=== PATIENT | female | born 1980 | race African-American/Black ===

== ENCOUNTER 2017-06-24 15:52 | Emergency (ER) | payer SELFPAY ==
[~2017-06-24] VITALS: Ht 160 cm; Wt 67.1 kg
[2017-06-24] MEDS ORDERED: IV NORMAL SALINE 1000ML BAG 1,000 ML IV SCH (16:27)
--- NOTE | 2017-06-24 16:27 | PHYS DOC ---
Past Medical History Past Medical History: Asthma Past Surgical History: Tubal ligation, Other Additional Past Surgical Histo: ovary cyst removed Alcohol Use: None Drug Use: None Adult General Chief Complaint Chief Complaint: ABDOMINAL PAIN HPI HPI Patient is a 36 year old female who presents with complaint of left sided pelvic pain. Patient states her symptoms started early this morning. Patient states she is currently on her menstrual cycle and states that she has had similar issues of pain with her menstrual cycle, however her current episode is much more severe at this time. Patient has had associated nausea and vomiting with her pain. Pain rated as 10 out of 10. Patient took Tylenol with no relief in symptoms. Patient denies fever or diarrhea with her symptoms. Review of Systems Review of Systems Constitutional: Denies fever or chills [] Eyes: Denies change in visual acuity, redness, or eye pain [] HENT: Denies nasal congestion or sore throat [] Respiratory: Denies cough or shortness of breath [] Cardiovascular: Denies chest pain or edema[] GI: Nausea, vomiting, denies bloody stools or diarrhea [] : Pelvic pain, denies dysuria or hematuria[] Musculoskeletal: Denies back pain or joint pain [] Integument: Denies rash or skin lesions [] Neurologic: Denies headache, focal weakness or sensory changes [] Current Medications Current Medications Current Medications Medications (Trade) Dose Ordered Sig/Iris Start Time Stop Time Status Last Admin Dose Admin Famotidine (Pepcid) 20 mg 1X ONCE 06/24/17 16:30 06/24/17 16:31 DC 06/24/17 16:46 20 MG Fentanyl Citrate (Fentanyl 2ml Vial) 50 mcg PRN Q15MIN PRN 06/24/17 16:30 06/24/17 18:17 DC 06/24/17 16:47 50 MCG Ondansetron HCl (Zofran) 4 mg 1X ONCE 06/24/17 16:30 06/24/17 16:31 DC 06/24/17 16:46 4 MG Sodium Chloride 1,000 ml @ 1,000 mls/hr Q1H 06/24/17 16:27 06/24/17 17:26 DC 06/24/17 16:46 1,000 MLS/HR Allergies Allergies Allergies Coded Allergies Type Severity Reaction Last Updated Verified No Known Drug Allergies 08/29/13 No Physical Exam Physical Exam Constitutional: Alert, afebrile, appears in moderate to severe discomfort. [] HENT: Normocephalic, atraumatic, bilateral external ears normal, oropharynx moist, no oral exudates, nose normal. [] Eyes: PERRLA, EOMI, conjunctiva normal, no discharge. [] Neck: Normal range of motion, no tenderness, supple, no stridor. [] Cardiovascular:Heart rate regular rhythm, no murmur [] Lungs & Thorax: Bilateral breath sounds clear to auscultation [] Abdomen: Bowel sounds normal, soft, no tenderness, no masses, no pulsatile masses. [] Skin: Warm, dry, no erythema, no rash. [] Back: No tenderness, no CVA tenderness. [] Extremities: No tenderness, no cyanosis, no clubbing, ROM intact, no edema. [] Neurologic: Alert and oriented X 3, normal motor function, normal sensory function, no focal deficits noted. [] Current Patient Data Vital Signs Vital Signs Date Time Temp Pulse Resp B/P (MAP) Pulse Ox O2 Delivery O2 Flow Rate FiO2 06/24/17 17:42 56 20 119/69 (86) 99 Room Air 06/24/17 16:06 98.5 98.5 Lab Values Laboratory Tests Test 06/24/17 16:15 White Blood Count 13.1 x10^3/uL (4.0-11.0) H Red Blood Count 3.82 x10^6/uL (3.50-5.40) Hemoglobin 11.8 g/dL (12.0-15.5) L Hematocrit 35.9 % (36.0-47.0) L Mean Corpuscular Volume 94 fL (79-100) Mean Corpuscular Hemoglobin 31 pg (25-35) Mean Corpuscular Hemoglobin Concent 33 g/dL (31-37) Red Cell Distribution Width 15.0 % (11.5-14.5) H Platelet Count 347 x10^3/uL (140-400) Neutrophils (%) (Auto) 92 % (31-73) H Lymphocytes (%) (Auto) 6 % (24-48) L Monocytes (%) (Auto) 2 % (0-9) Eosinophils (%) (Auto) 0 % (0-3) Basophils (%) (Auto) 0 % (0-3) Neutrophils # (Auto) 12.1 x10^3uL (1.8-7.7) H Lymphocytes # (Auto) 0.7 x10^3/uL (1.0-4.8) L Monocytes # (Auto) 0.3 x10^3/uL (0.0-1.1) Eosinophils # (Auto) 0.0 x10^3/uL (0.0-0.7) Basophils # (Auto) 0.0 x10^3/uL (0.0-0.2) Platelet Estimate Pending Sodium Level 138 mmol/L (136-145) Potassium Level 3.9 mmol/L (3.5-5.1) Chloride Level 101 mmol/L (98-107) Carbon Dioxide Level 26 mmol/L (21-32) Anion Gap 11 (6-14) Blood Urea Nitrogen 10 mg/dL (7-20) Creatinine 0.9 mg/dL (0.6-1.0) Estimated GFR (Cockcroft-Gault) 85.7 BUN/Creatinine Ratio 11 (6-20) Glucose Level 100 mg/dL (70-99) H Calcium Level 8.7 mg/dL (8.5-10.1) Total Bilirubin 0.3 mg/dL (0.2-1.0) Aspartate Amino Transferase (AST) 20 U/L (15-37) Alanine Aminotransferase (ALT) 22 U/L (14-59) Alkaline Phosphatase 67 U/L (46-116) Total Protein 8.9 g/dL (6.4-8.2) H Albumin 3.8 g/dL (3.4-5.0) Albumin/Globulin Ratio 0.7 (1.0-1.7) L Lipase 174 U/L (73-393) Serum Test, Qualitative Negative (NEG) Laboratory Tests 06/24/17 16:15 Laboratory Tests 06/24/17 16:15 Microbiology 06/24/17 Wet Prep - Final, Complete EKG EKG Not performed[] Radiology/Procedures Radiology/Procedures [facility] [address] [place] [address] IMAGING REPORT Signed PATIENT: JEANINE KIRKPATRICK ACCOUNT: [id number] : 1980 LOCATION: ER AGE: 36 SEX: F EXAM STATUS: REG ER ORD. PHYSICIAN: KIT VILLAFANA MD REASON: left adnexal pain PROCEDURE: PELVIS W/TV Pelvic ultrasound Clinical Indication:LT ADNEXAL PAIN. . TRANSABDOMINAL SCAN Uterus measures 7.4 cm longitudinal by 5.3 cm AP by 6.5 cm wide. Endometrial stripe measures 5 mm thickness. Ovaries are not seen. TRANSVAGINAL SCAN Uterus: No evidence of a focal lesion. Measurements provided above. Endometrium: 6 mm thickness. Right ovary: 4.5 cm long axis with small follicles and positive blood flow.. Left ovary: 3.1 cm long axis. Positive blood flow. Free fluid: No significant free fluid. Small nabothian cysts are identified in the cervix. IMPRESSION: No significant sonographic abnormality. Small nabothian cysts. Electronically signed by: Tavon Burgos MD (06/24/2017 5:27 PM) [id number] DICTATED and SIGNED BY: TAVON BURGOS MD DATE: 06/24/171722 CC: KIT VILLAFANA MD; NO PCP ~ [] Course & Med Decision Making Course & Med Decision Making Pertinent Labs and Imaging studies reviewed. (See chart for details) Patient was given IV fluids, fentanyl, and Zofran in the emergency department. On reevaluation, patient states her symptoms have improved. The patient's ultrasound was normal. Patient's wet prep shows evidence of bacterial vaginosis which is likely contributing to the patient's pain symptoms. The patient will be treated with MetroGel for bacterial vaginosis. Patient also given prescriptions for [employer] and Zofran for symptomatic control as outpatient. Advised follow-up in 2-3 days a primary doctor for reevaluation and return to emergency department for any worsening symptoms. Patient voiced understanding and in agreement with treatment plan. Dragon Disclaimer Dragon Disclaimer This electronic medical record was generated, in whole or in part, using a voice recognition dictation system. Departure Departure Impression: Primary Impression: Bacterial vaginosis Additional Impression: Pelvic pain Disposition: 01 HOME, SELF-CARE Condition: IMPROVED Referrals: DANIELA AUSTIN MD (PCP) Patient Instructions: Bacterial Vaginosis Additional Instructions: Follow-up with your primary doctor in 2-3 days for reevaluation. Return to the emergency department for any worsening symptoms. Scripts Hydrocodone/Apap 5-325 (NORCO 5-325 TABLET) 1 Each Tablet 1-2 TAB PO Q4-6HRS Y for PAIN, #20 TAB Prov: KIT VILLAFANA MD 06/24/17 Ondansetron (ZOFRAN ODT) 4 Mg Tab.rapdis 1 TAB SL Q8HRS Y for NAUSEA/VOMITING, #15 TAB Prov: KIT VILLFAANA MD 06/24/17 Metronidazole (METROGEL-VAGINAL) 70 Gm Gel.w.appl 1 APPFUL VG QHS for 7 Days, #70 GM Prov: KIT VILLAFANA MD 06/24/17 Problem Qualifiers KIT VILLAFANA MD Jun 24, 2017 16:27
[2017-06-24] MEDS ORDERED: fentaNYL PF VIAL 100 MCG/2 ML VIAL IV PRN (16:30)
[2017-06-24] MEDS ORDERED: ONDANSETRON PF 4 MG/2 ML VIAL. IV ONE (16:30)
[2017-06-24] MEDS ORDERED: FAMOTIDINE 20 MG/2 ML VIAL IVP ONE (16:30)
[2017-06-24 16:38] LABS: BASO % 0 % (0-3); EOS % 0 % (0-3); HEMATOCRIT 35.9 % (36.0-47.0); HEMOGLOBIN 11.8 g/dL (12.0-15.5); LYMPH # 0.7 x10^3/uL (1.0-4.8); LYMPH % 6 % (24-48); MEAN CORPUSCULAR HEMOGLOBIN 31 pg (25-35); MEAN CORPUSCULAR HGB CONC 33 g/dL (31-37); MEAN CORPUSCULAR VOLUME 94 fL (79-100); MONO % 2 % (0-9); NEUT % 92 % (31-73); PLATELET COUNT 347 x10^3/uL (140-400); RED BLOOD COUNT 3.82 x10^6/uL (3.50-5.40); WHITE BLOOD COUNT 13.1 x10^3/uL (4.0-11.0)
[2017-06-24 16:52] LABS: NEG OBC SER NEG; POS OBC SER POS
[2017-06-24 16:53] LABS: CALCIUM 8.7 mg/dL (8.5-10.1); CREATININE 0.9 mg/dL (0.6-1.0); GFR 85.7; POTASSIUM 3.9 mmol/L (3.5-5.1)
[2017-06-24 16:58] LABS: ALBUMIN 3.8 g/dL (3.4-5.0); ALBUMIN/GLOBULIN RATIO 0.7 (1.0-1.7); TOTAL BILIRUBIN 0.3 mg/dL (0.2-1.0); TOTAL PROTEIN 8.9 g/dL (6.4-8.2)
--- NOTE | 2017-06-24 17:30 | RAD ---
Pelvic ultrasound Clinical Indication:LT ADNEXAL PAIN. . TRANSABDOMINAL SCAN Uterus measures 7.4 cm longitudinal by 5.3 cm AP by 6.5 cm wide. Endometrial stripe measures 5 mm thickness. Ovaries are not seen. TRANSVAGINAL SCAN Uterus: No evidence of a focal lesion. Measurements provided above. Endometrium: 6 mm thickness. Right ovary: 4.5 cm long axis with small follicles and positive blood flow.. Left ovary: 3.1 cm long axis. Positive blood flow. Free fluid: No significant free fluid. Small nabothian cysts are identified in the cervix. IMPRESSION: No significant sonographic abnormality. Small nabothian cysts. Electronically signed by: Tavon Burgos MD (06/24/2017 5:27 PM) [id number]
[2017-06-24 17:42] VITALS: BP 119/69
[2017-06-24] MEDS ORDERED: ONDA4TAB10 SL (18:03)
[2017-06-24] MEDS ORDERED: HYDR-971 PO (18:03)
[2017-06-24] MEDS ORDERED: METR70GE14 VG (18:03)
[2017-06-24 18:20] LABS: BILIRUBIN,URINE NEGATIVE (NEG); GLUCOSE,URINE NEGATIVE (NEG); NITRITE,URINE NEGATIVE (NEG); PROTEIN,URINE NEGATIVE (NEG-TRACE); UROBILINOGEN,URINE 0.2 mg/dL (0.2 mg/dL)
[2017-06-24 18:47] LABS: BACTERIA,URINE FEW /HPF (0-FEW); SQUAMOUS EPITHELIAL CELL,UR OCC /LPF
[2017-06-24 19:11] LABS: OVALOCYTES OCC; PLT ESTIMATE ADEQUATE (ADEQUATE); POLYCHROMASIA SLIGHT; SCHISTOCYTES OCC
== END 2017-06-24 18:17 | disposition home or self-care (01) ==
LOC: ER 15:52
DX: N76.0 Acute vaginitis (principal); R11.2 Nausea with vomiting, unspecified; J45.909 Unspecified asthma, uncomplicated
CPT/HCPCS: 36415; 76830; 76856; 80053; 81001; 83690; 84703; 85007; 85025; 87086; 87491; 87591; 96361; 96374; 96375; 99285; J2405; J3010; J7030; Q0111; S0028